=== PATIENT | female | born 1945 | race Caucasian/White ===

== ENCOUNTER 2019-04-19 12:45 | Emergency (ER) | payer MEDICARE ==
[~2019-04-19] VITALS: Ht 157.5 cm; Wt 107.0 kg
[~2019-04-19 12:45] MED LIST: ACETAMINOPHEN325 M1 PO; ALPHAGAN P5 ML OU; AMBIEN5 MG PO; ASPIR 8181 MG PO; ASPIR-LOW81 MG PO; Aspirin PO; CALCIUM CITRAT1 EAC3 PO; CENTRUM SILVER1 EAC1 PO; CHLORDIAZEPOXI1 EACH PO; COLACE100 MG PO; DITROPAN XL5 MG PO; GLIPIZIDE5 MG PO; KLOR-CON 1010 MEQ PO; LASIX40 MG PO; LEXAPRO10 MG PO; LORTAB 7.5-5001 EACH PO; LOVENOX30 MG/0.3 SC; LUMIGAN2.5 M1 OU; NAPROXEN PO; PANTOPRAZOLE SO40 MG PO; ULTRAM 50MG50 MG PO; WELLBUTRIN100 MG PO; ZESTRIL10 MG PO
[2019-04-19] MEDS ORDERED: DIAZEPAM 5 MG TAB PO ONE (13:30)
[2019-04-19] MEDS ORDERED: DIAZEPAM 2 MG TAB PO ONE (13:30)
[2019-04-19] MEDS ORDERED: KETOROLAC TROMETHAMINE 60 MG/2 ML VIAL IM ONE (13:30)
--- NOTE | 2019-04-19 14:36 | Diagnostic Imaging Report ---
Exam: Left hip series Clinical History: Left hip pain Findings: There is no evidence of acute fracture or malalignment. The articular joints are well-preserved. The soft tissue is unremarkable. Impression: No radiographic evidence of acute osseous injury. Signed by: Dr. Kris Hernandez MD on 04/19/2019 2:33 PM
[2019-04-19] MEDS ORDERED: ROBAXIN-750750 MG PO (15:29)
[2019-04-19] MEDS ORDERED: ULTRAM50 MG PO (15:29)
[2019-04-19 16:09] VITALS: BP 126/63
== END 2019-04-19 16:11 | disposition home or self-care (01) ==
LOC: ER 12:45
DX: S39.012A Strain of muscle, fascia and tendon of lower back, initial encounter (principal); M25.552 Pain in left hip
CPT/HCPCS: 73502; 99284; J1885

== ENCOUNTER → 2019-04-26 | Outpatient (CLI) | payer MEDICARE ==
[~2019-04-26] MED LIST changes: +ROBAXIN-750750 MG PO; +ULTRAM50 MG PO
--- NOTE | 2019-04-26 15:37 | Diagnostic Imaging Report ---
EXAM: CT Chest WITHOUT intravenous contrast 04/26/2019 12:52 PM INDICATION: Shortness of breath COMPARISON: None TECHNIQUE: Chest was scanned utilizing a multidetector helical scanner from the lung apex through the level of the adrenal glands without administration of IV contrast. Coronal and sagittal reformations were obtained. Routine protocol was performed. IV CONTRAST: None RADIATION DOSE: Total DLP: 518.98 mGy*cm. Dose modulation, iterative reconstruction, and/or weight based adjustment of the mA/kV was utilized to reduce the radiation dose to as low as reasonably achievable. COMPLICATIONS: None FINDINGS: LINES/ TUBES: None. LUNGS AND AIRWAYS: The central airways are patent. No focal consolidation or pulmonary edema. 4 mm left upper lobe pulmonary nodule (series 3 image 52). 4 mm right middle lobe pulmonary nodule (series 3 image 55). 4 mm left lower lobe pulmonary nodule (series 3 image 73) PLEURA: The pleural spaces are clear. HEART AND MEDIASTINUM: The thyroid gland is normal. No mediastinal, hilar or axillary lymphadenopathy. The heart is not enlarged. No pericardial effusion. Mild scattered coronary artery atherosclerotic calcifications and thoracic aortic atherosclerotic calcifications. UPPER ABDOMEN: Limited noncontrast enhanced images of the upper abdomen demonstrate prior cholecystectomy and no focal abnormality of the partially visualized liver, spleen, pancreas, upper most left kidney or left adrenal. There is a 1.8 cm right adrenal low-density nodule consistent with lipid rich adenoma, a benign entity for which no further imaging follow-up is required. BONES: No acute osseous injury. No suspicious lytic or blastic lesions. Moderate degenerative changes of the visualized spine. Diffuse osteopenia. SOFT TISSUES: Unremarkable. IMPRESSION: No focal pneumonia or pulmonary edema. Scattered bilateral pulmonary nodules measuring up to 4 mm. If the patient is low risk, no further follow-up imaging is necessary. If the patient is high risk, chest CT is optional at 12 months per Fleischner society recommendations 2017. Signed by: Bandar Olmstead MD on 04/26/2019 3:34 PM
== END ==
LOC: RESP 12:27
PROVIDERS: ATTEND Internal Medicine
DX: R06.09 Other forms of dyspnea (principal)
CPT/HCPCS: 71250; 93306; 94060; 94640; 94727; 94729

== ENCOUNTER → 2019-06-13 | Outpatient (CLI) | payer MEDICARE ==
[~2019-06-13] MED LIST changes: +LORAZEPAM INJ 2 MG/ML VIAL ONE
--- NOTE | 2019-06-13 13:59 | Diagnostic Imaging Report ---
History: Gait disturbance, memory loss Comparison studies: Head CT of 12/05/2015 is unavailable on the PACS for comparison. Technique: 3-D T1, axial DWI, axial T2 FLAIR, axial T2, axial T2*GRE. Intravenous contrast: None Findings: Exam is limited by artifacts related to patient motion. Scalp: Normal in signal. No masses. Bone marrow: Normal in signal intensity. Brain sulci: Appropriate for age. Ventricles: Normal in size. No hydrocephalus. Extra axial spaces: No mass, no fluid collection. Parenchyma: No no mass, hemorrhage or acute ischemia. A few scattered T2 FLAIR hyperintense foci in the supratentorial white matter are nonspecific but are most compatible with chronic microvascular ischemic changes. Brain volume is within normal limits for patient's age. No gross significant focal disproportionate lobar, hippocampal, brainstem or cerebellar atrophy. Suprasellar region: Mostly CSF filled sella, a nonspecific finding which can also be seen normally and postmenopausal female patient of this age. Craniocervical junction: Patent foramen magnum. No Chiari malformation. Vessels: Normal flow-voids in the arteries and sinuses. IMPRESSION: Exam limited by artifacts related to patient motion. In spite of limitations: 1. Mild chronic microvascular ischemic changes. 2. Brain volume within normal limits for patient's age. No significant focal brain atrophy. Signed by: Dr. Arron Longo M.D. on 06/13/2019 1:56 PM
== END ==
LOC: MRI 09:29
PROVIDERS: ATTEND Student in an Organized Health Care Education/Training Program
DX: R41.3 Other amnesia (principal); R26.9 Unspecified abnormalities of gait and mobility
CPT/HCPCS: 70551; J2060

== ENCOUNTER → 2020-09-06 | Day surgery (SDC) | payer MEDICARE ==
[2020-09-03 14:36] LABS: BASOPHILS # (AUTO) 0.1 (0.0-0.1); EOSINOPHILS # (AUTO) 0.2 (0.0-0.4); EOSINOPHILS % 2.9 % (0.0-6.0); HEMATOCRIT 43.1 % (34.2-44.1); HEMOGLOBIN 14.2 g/dL (12.0-16.0); LYMPHOCYTES # (AUTO) 1.8 (1.0-3.2); LYMPHOCYTES % 21.4 % (18.0-39.1); MEAN CORPUSCULAR HEMOGLOBIN 31.3 pg (28-32); MEAN CORPUSCULAR HGB CONC 32.9 g/dL (31-35); MEAN CORPUSCULAR VOLUME 94.9 fL (81-99); MONOCYTES # (AUTO) 0.7 (0.2-0.8); MONOCYTES % 7.7 % (4.4-11.3); NEUTROPHILS # (AUTO) 5.6 (2.1-6.9); NEUTROPHILS % 66.3 % (38.7-80.0); PLATELET COUNT 182 x10e3/uL (140-360); RED BLOOD COUNT 4.54 x10e6/uL (3.6-5.1); RED CELL DISTRIBUTION WIDTH 12.1 % (11.7-14.4)
[~2020-09-06] MED LIST changes: +ASPIRIN81 MG PO; +LIDOCAINE HCL 2% LOCAL INJ 5 ML SDV VIAL INJ ONE; -LORAZEPAM INJ 2 MG/ML VIAL ONE; +PROAIR HFA INH8.5 GM INH; +PROPOFOL IV EMULSION 10 MG/ML 20 ML VIAL ONE; +TRULICITY0.75 MG/0. SC
[2020-09-06 08:40] VITALS: BP 133/74
== END | disposition home or self-care (01) ==
LOC: OR 05:36
PROVIDERS: ATTEND Internal Medicine Gastroenterology
DX: K52.9 Noninfective gastroenteritis and colitis, unspecified (principal); K63.5 Polyp of colon; K57.30 Diverticulosis of large intestine without perforation or abscess without bleeding; K64.8 Other hemorrhoids; Z71.3 Dietary counseling and surveillance; E66.01 Morbid (severe) obesity due to excess calories; I10 Essential (primary) hypertension; J45.909 Unspecified asthma, uncomplicated; I49.3 Ventricular premature depolarization; I45.10 Unspecified right bundle-branch block; Z88.0 Allergy status to penicillin; Z88.2 Allergy status to sulfonamides; Z91.041 Radiographic dye allergy status; Z01.810 Encounter for preprocedural cardiovascular examination; Z01.812 Encounter for preprocedural laboratory examination; Z20.822 Contact with and (suspected) exposure to COVID-19; Z79.82 Long term (current) use of aspirin; Z79.84 Long term (current) use of oral hypoglycemic drugs; Z68.41 Body mass index [BMI] 40.0-44.9, adult
CPT/HCPCS: 36415 ×2; 45380; 45385; 82948; 85025; 93005; J2001; J2704; U0002